=== PATIENT | male | born 1990 | race Caucasian/White ===

== ENCOUNTER 2020-12-11 13:09 | Emergency (ER) | payer BC ==
[~2020-12-11] VITALS: Ht 190 cm; Wt 140.0 kg
[2020-12-11 13:47] LABS: BASOPHILS % (AUTO) 0 % (0-10); EOSINOPHILS % (AUTO) 0 % (0-10); HEMATOCRIT 44 % (40-54); HEMOGLOBIN 14.5 g/dL (13.3-17.7); LYMPHOCYTES # (AUTO) 1.4 10^3/uL (1.0-4.0); LYMPHOCYTES % (AUTO) 20 % (12-44); MEAN CORPUSCULAR HEMOGLOBIN 28 pg (25-34); MEAN CORPUSCULAR HGB CONC 33 g/dL (32-36); MEAN CORPUSCULAR VOLUME 87 fL (80-99); MEAN PLATELET VOLUME 10.3 fL (9.0-12.2); MONOCYTES # (AUTO) 0.6 10^3/uL (0.0-1.0); MONOCYTES % (AUTO) 8 % (0-12); NEUTROPHILS % (AUTO) 70 % (42-75); PLATELET COUNT 231 10^3/uL (130-400); WHITE BLOOD COUNT 7.1 10^3/uL (4.3-11.0)
[2020-12-11] MEDS ORDERED: LACTATED RINGERS 1,000 ML IV SCH (14:00)
[2020-12-11] MEDS ORDERED: PROMETHAZINE/ CODEINE SYRUP 5 ML UDC PO ONE (14:00)
[2020-12-11] MEDS ORDERED: RT-ALBUTEROL INHALER HFA (VENTOLIN HFA) 18 GM IH SCH (14:00)
[2020-12-11 14:11] LABS: ALANINE AMINOTRANSFERASE 34 U/L (0-55); ALBUMIN 4.1 GM/DL (3.2-4.5); ALKALINE PHOSPHATASE 55 U/L (40-136); BILIRUBIN,TOTAL 0.4 MG/DL (0.1-1.0); BUN/CREATININE RATIO 11; CALCIUM 8.8 MG/DL (8.5-10.1); CARBON DIOXIDE 23 MMOL/L (21-32); CHLORIDE 103 MMOL/L (98-107); CREATININE SERUM 0.89 MG/DL (0.60-1.30); GFR ESTIMATED > 60; GLUCOSE 131 MG/DL (70-105); POTASSIUM 3.8 MMOL/L (3.6-5.0); SODIUM 137 MMOL/L (135-145); TOTAL PROTEIN 7.2 GM/DL (6.4-8.2)
--- NOTE | 2020-12-11 14:57 | ED Respiratory ---
General Chief Complaint: Respiratory Problems Stated Complaint: COVID +,SOB, COUGH,CHEST TIGHTNESS Nursing Triage Note: PT IS COVID + AND HAVING INCREASED SOA, PERSISTANT COUGH AND LOW GRADE FEVER PT STATES TESTED + 1 WEEK AGO Source: patient Exam Limitations: no limitations History of Present Illness Date Seen by Provider: Dec 11, 2020 Time Seen by Provider: 14:15 Initial Comments Here with report of having Covid, diagnosed 1 week ago, and now with increasing cough and having a hard time sleeping due to the cough. Denies nausea or vomiting. States drinking okay but sleeping a lot. Overall still just feels terrible. Timing/Duration: week, getting worse Severity: moderate Prior Episodes/Possible Cause: no prior episodes Associated Symptoms: No chest pain/soreness; cough, fever/chills, nasal congestion, nasal drainage, sore throat Allergies and Home Medications Allergies Coded Allergies: No Known Drug Allergies (Unverified , 12/11/20) Patient Home Medication List Home Medication List Reviewed: Yes Review of Systems Review of Systems Constitutional: see HPI, chills, fever, malaise EENTM: see HPI Respiratory: see HPI Cardiovascular: no symptoms reported Gastrointestinal: no symptoms reported Genitourinary: no symptoms reported Musculoskeletal: No back pain; muscle pain Skin: no symptoms reported All Other Systems Reviewed Negative Unless Noted: Yes Past Kmpdkcc-Vjxtoe-Hpbslz Hx Past Med/Social Hx: Reviewed Nursing Past Med/Soc Hx Patient Social History Alcohol Use: Denies Use Smoking Status: Never a Smoker Recent Infectious Disease Expo: No Recent Hopitalizations: No Past Medical History Surgeries: No Respiratory: No Cardiac: No Neurological: No Genitourinary: No Gastrointestinal: No Musculoskeletal: No Endocrine: No HEENT: No Cancer: No Psychosocial: Yes ADD/ADHD Integumentary: No Blood Disorders: No Adverse Reaction/Blood Tranf: No Family Medical History Reviewed Nursing Family Hx Physical Exam Vital Signs - First Documented 12/11/20 13:25 Temp 37.7 Pulse 108 Resp 20 B/P (MAP) 150/102 (118) Pulse Ox 96 Capillary Refill : Less Than 3 Seconds Height: '" Weight: lbs. oz. kg; 38.00 BMI Method: General Appearance: WD/WN, no apparent distress Neck: full range of motion, supple Respiratory: lungs clear, normal breath sounds Cardiovascular: no murmur, tachycardia Gastrointestinal: non tender, soft Extremities: non-tender, normal inspection Neurologic/Psychiatric: alert, oriented x 3 Skin: normal color, warm/dry Progress/Results/Core Measures Suspected Sepsis Recent Fever Within 48 Hours: Yes Infection Criteria Present: Documented Infection New/Unexplained Altered Menta: No Sepsis Screen: Possible Sepsis Risk SIRS Temperature: Pulse: 108 Respiratory Rate: 20 Laboratory Tests 12/11/20 13:25: White Blood Count 7.1 Blood Pressure 150 /102 Mean: 118 Laboratory Tests 12/11/20 13:25: Creatinine 0.89, Platelet Count 231, Total Bilirubin 0.4 Results/Orders Lab Results Laboratory Tests Test 12/11/20 13:25 Range/Units White Blood Count 7.1 4.3-11.0 10^3/uL Red Blood Count 5.10 4.30-5.52 10^6/uL Hemoglobin 14.5 13.3-17.7 g/dL Hematocrit 44 40-54 % Mean Corpuscular Volume 87 80-99 fL Mean Corpuscular Hemoglobin 28 25-34 pg Mean Corpuscular Hemoglobin Concent 33 32-36 g/dL Red Cell Distribution Width 12.3 10.0-14.5 % Platelet Count 231 130-400 10^3/uL Mean Platelet Volume 10.3 9.0-12.2 fL Immature Granulocyte % (Auto) 1 % Neutrophils (%) (Auto) 70 42-75 % Lymphocytes (%) (Auto) 20 12-44 % Monocytes (%) (Auto) 8 0-12 % Eosinophils (%) (Auto) 0 0-10 % Basophils (%) (Auto) 0 0-10 % Neutrophils # (Auto) 5.0 1.8-7.8 10^3/uL Lymphocytes # (Auto) 1.4 1.0-4.0 10^3/uL Monocytes # (Auto) 0.6 0.0-1.0 10^3/uL Eosinophils # (Auto) 0.0 0.0-0.3 10^3/uL Basophils # (Auto) 0.0 0.0-0.1 10^3/uL Immature Granulocyte # (Auto) 0.1 0.0-0.1 10^3/uL D-Dimer 0.32 0.00-0.49 UG/ML Sodium Level 137 135-145 MMOL/L Potassium Level 3.8 3.6-5.0 MMOL/L Chloride Level 103 98-107 MMOL/L Carbon Dioxide Level 23 21-32 MMOL/L Anion Gap 11 5-14 MMOL/L Blood Urea Nitrogen 10 7-18 MG/DL Creatinine 0.89 0.60-1.30 MG/DL Estimat Glomerular Filtration Rate > 60 BUN/Creatinine Ratio 11 Glucose Level 131 H 70-105 MG/DL Calcium Level 8.8 8.5-10.1 MG/DL Corrected Calcium 8.7 8.5-10.1 MG/DL Total Bilirubin 0.4 0.1-1.0 MG/DL Aspartate Amino Transf (AST/SGOT) 22 5-34 U/L Alanine Aminotransferase (ALT/SGPT) 34 0-55 U/L Alkaline Phosphatase 55 40-136 U/L C-Reactive Protein High Sensitivity 6.10 H 0.00-0.50 MG/DL Total Protein 7.2 6.4-8.2 GM/DL Albumin 4.1 3.2-4.5 GM/DL Procalcitonin 0.03 <0.10 NG/ML Medications Given in ED Current Medications Medications Dose Ordered Sig/Thomas Route Start Time Stop Time Status Last Admin Dose Admin Promethazine HCl/ Codeine 5 ml ONCE ONCE PO 12/11/20 14:00 12/11/20 14:01 DC 12/11/20 14:07 5 ML Vital Signs/I&O 12/11/20 13:25 Temp 37.7 Pulse 108 Resp 20 B/P (MAP) 150/102 (118) Pulse Ox 96 Capillary Refill : Less Than 3 Seconds Blood Pressure Mean: 118 Progress Note : Progress Note Seen and evaluated. IV, labs, LR 1 L bolus, Phenergan with codeine 5 mL p.o. ordered. Monitor patient. 1535: Patient doing a little bit better. Labs do not reveal any significant findings. Chest x-ray pending. Monitor patient. ECG Initial ECG Impression Date: Dec 11, 2020 Initial ECG Impression Time: 13:31 Initial ECG Rate: 101 Diagnostic Imaging Diagonstic Imaging: Xray Plain Films/CT/US/NM/MRI: chest Comments [facility], [place] NAME: VIJAY FUNG [facility] REC#: [id number] PT STATUS: REG ER : 1990 PHYSICIAN: BJORN CHAU CONSOLIDATOR ADMIT DATE: 12/11/20/ER Draft Date of Exam:12/11/20 CHEST 1 VIEW, AP/PA ONLY EXAM: CHEST 1 view, AP/PA only. INDICATION: Cough. COVID positive. Chest tightness. COMPARISON: None. FINDINGS: Mild patchy airspace opacities in the lung bases, right greater than left. No pleural effusion or pneumothorax. Normal heart size and central pulmonary vascularity. IMPRESSION: Patchy airspace opacities in the lung bases, right greater than left. Dictated on workstation # [id number] Dict: 12/11/20 1547 Trans: 12/11/20 1550 [facility] [id number] Interpreted by: BRADLEY MEJIA MD Electronically signed by: Departure Impression Primary Impression: COVID-19 virus infection Disposition: 01 HOME, SELF-CARE Condition: Stable Departure-Patient Inst. Decision time for Depature: 15:36 Referrals: BABAR NASSAR MD (PCP/Family) Primary Care Physician Patient Instructions: Coronavirus Disease 2019 (COVID-19) (DC) Add. Discharge Instructions: All discharge instructions reviewed with patient and/or family. Voiced understanding. You may continue Tylenol/acetaminophen 1000 mg every 6-8 hours as needed for fever or pain. You may take ibuprofen 600 mg every 8 hours as needed for fever or pain. Drink plenty of fluids. Get plenty of rest and try to eat as tolerated. You may use albuterol inhaler with spacer 2 puffs every 4 hours as needed for shortness of breath or wheezing. You may take the cough medicine that was given 1 teaspoon every 6 hours but try to limit this to nighttime or wi th severe cough as this may make you a little bit drowsy. Continue to monitor your oxygen saturations and return if O2 saturation falls below 90 while resting a few minutes. Return for worse pain, fever, vomiting, weakness, breathing problems or other concerns as needed. Scripts Promethazine HCl/Codeine (Prometh-Codein 6.25-10 mg/5 ml) 5 Ml Syrup 5 ML PO Q6H PRN for COUGH, #80 ML 0 Refills Prov: ANGELLA BOWER MD 12/11/20 ANGELLA BOWER MD Dec 11, 2020 14:57
--- NOTE | 2020-12-11 15:50 | Diagnostic Imaging Report ---
EXAM: CHEST 1 view, AP/PA only. INDICATION: Cough. COVID positive. Chest tightness. COMPARISON: None. FINDINGS: Mild patchy airspace opacities in the lung bases, right greater than left. No pleural effusion or pneumothorax. Normal heart size and central pulmonary vascularity. IMPRESSION: Patchy airspace opacities in the lung bases, right greater than left. Dictated by: Dictated on workstation # [id number]
[2020-12-11] MEDS ORDERED: PROM5SYR PO (16:01)
[2020-12-11 16:15] VITALS: BP 160/84
== END 2020-12-11 16:15 | disposition home or self-care (01) ==
LOC: ER 13:14
DX: U07.1 COVID-19 (principal); Z73.0 Burn-out
CPT/HCPCS: 36415; 71045; 80053; 84145; 85025; 85379; 86141; 93005